=== PATIENT | female | born 1950 | race Caucasian/White ===

== ENCOUNTER 2017-05-08 10:41 | Emergency (ER) | payer MEDICARE, BC ==
[2017-05-08 10:49] VITALS: BP 169/77
[2017-05-08] MEDS ORDERED: Aspirin Low Dose CHEW TAB* 81 MG PO ONE (11:17)
[2017-05-08] MEDS ORDERED: NS 0.9% 1000 ML* 1,000 ML IV ONE (11:18)
[2017-05-08] MEDS ORDERED: Aspirin Low Dose CHEW TAB* 81 MG ONE (11:19)
--- NOTE | 2017-05-08 11:24 | UC ---
Mayito Novak Rebecca, scribed for Karon Monroy MD on 05/08/17 at 1103 . Cardiac HPI - HPI Summary HPI Summary: Pt is a 66 y/o F accompanied by her who presents to [facility] c/o CP radiating to the back. Pain began suddenly this morning and has been constant since onset. PT denies sob, diaphoresis. Pain is in the left anterior region with radiation to the back. Currently, pain is mild, ranked 3/10 and characterized as dull. No analgesia taken. Pt also reports R calf pain that began on April 27 (11 days ago) upon arriving in the [facility] after a plane trip back from [place]. Calf pain was not present while in [place] and has been constant since onset, worse at night. No trauma. Pt states pain worse with movement, palpation calf. Sx slightly alleviated by walking, aggravated by nothing. Denies any extraneous exercise or recent trauma. PMHx HTN, CAD with AL in 1993. PSHx angioplasty in [place], [place]. Does not take any blood thinners. Has been compliant with HTN medication. Pt is not on anticoagulation Patient's medications reviewed this visit. - History of Current Complaint [facility] Stated Complaint: CHEST PAIN,LEG PAIN Time Seen by Provider: 05/08/17 10:47 Hx Obtained From: Patient Onset/Duration: Lasting Days - CP - today R calf pain - 11 days ago, Still Present Timing: Constant Current Severity: Mild Pain Intensity: 3 Chest Pain Location: Left Anterior - with radiation to the back Character: Dull/Aching Aggravating: Nothing Alleviating: Upright - Standing and walking Associated Signs & Symptoms: Positive: Calf Pain/Swelling - R calf pain for 11 days s/p plane ride from [email or web address] - Allergy/Home Medications Allergies/Adverse Reactions: Allergies Allergy/AdvReac Type Severity Reaction Status Date / Time Penicillins [PCN] Allergy Rash Verified 05/08/17 10:49 Home Medications: Home Medications Atorvastatin* [Lipitor 40 MG*] 40 mg PO DAILY 05/08/17 [History Confirmed ] Biotin 1,000 mcg PO DAILY 05/08/17 [History Confirmed 05/08/17] Magnesium 250 mg PO DAILY 05/08/17 [History Confirmed 05/08/17] Metoprolol Succinate XL TAB* [Toprol XL TAB*] 25 mg PO DAILY 05/08/17 [History Confirmed 05/08/17] [place]-3 Fatty Acids [Fish Oil] 1,200 mg PO DAILY 05/08/17 [History Confirmed ] Omeprazole CAP* [Prilosec CAP* 20 MG] 20 mg PO DAILY 05/08/17 [History Confirmed 05/08/17] PARoxetine HCL TAB* [Paxil TAB*] 10 mg PO DAILY 05/08/17 [History Confirmed ] PMH/Surg Hx/FS Hx/Imm Hx Cardiovascular History: Cardiac Disease, Hypertension, Myocardial Infarction - Surgical History Surgical History: Yes Surgery Procedure, Year, and Place: Puloric stenosis, gall bladder removed, compound fx left tibia, bunion surgery, angioplasty - Family History Known Family History: Positive: Hypertension - mother, Diabetes - father - Social History Lives: With Family Alcohol Use: Daily Substance Use Type: None Smoking Status (MU): Former Smoker Review of Systems Constitutional: Negative Skin: Negative Eyes: Negative ENT: Negative Respiratory: Negative Cardiovascular: Chest Pain - Left anterior with radiation to the back Gastrointestinal: Negative Genitourinary: Negative Motor: Negative Neurovascular: Negative Musculoskeletal: Other: - R calf pain for 11 days s/p plane ride from [place] Neurological: Negative Psychological: Negative All Other Systems Reviewed And Are Negative: Yes Physical Exam Triage Information Reviewed: Yes Appearance: Well-Appearing, No Pain Distress, Well-Nourished Vital Signs: Initial Vital Signs Temp 98.2 F 05/08/17 10:43 Pulse 78 05/08/17 10:43 Resp 18 05/08/17 10:43 BP 169/77 05/08/17 10:43 Pulse Ox 98 05/08/17 10:43 Vital Signs Reviewed: Yes Eyes: Negative: Discharge ENT: Positive: Hearing grossly normal Neck exam: Normal Respiratory: Positive: Chest non-tender, Lungs clear, Normal breath sounds, No respiratory distress Cardiovascular: Positive: RRR, No Murmur, Brisk Capillary Refill Musculoskeletal Exam: Normal Musculoskeletal: Positive: Other: - + tenderness with palption of right calf No edema Neurological Exam: Normal Neurological: Positive: Alert, Muscle Tone Normal Psychological Exam: Normal Skin Exam: Normal Diagnostics - EKG Cardiac Rate: NL - 69 bpm Cardiac Rhythm: Other Rhythm: New - RBBB - no old EKG to compare to ST Segment: Normal - No ST T wave changes - Assessment/Plan Course Of Treatment: PT with right calf pain x 11 days without trauma following plane ride. Pt with left sided cp radiating to back which started this morning. Concern for PE, CAD. d/w pt and -recommend EMS transfer to hospital - pt in agreement. with plan. will give ASA. saline lock. IVF. EMS transfer. Called ED for report - Clinical Impression Provider Diagnoses: chest pain, leg cramping - Physician Notifications Discussed Patient Care With: Raquel Benson Time Discussed With Above Provider: 11:25 Instructed by Provider To: Other - Discussed transfer, made aware of pt Discharge - Discharge Plan Condition: Stable Disposition: TRANS HIGHER LVL OF CARE FAC The documentation as recorded by the Mayito mae Rebecca accurately reflects the service I personally performed and the decisions made by Porfirio rivera Laura, MD.
== END 2017-05-08 11:30 | disposition short-term general hospital (02) ==
LOC: UCEAST 10:41
DX: M79.662 Pain in left lower leg (principal); I20.9 Angina pectoris, unspecified
CPT/HCPCS: 93005; 96360; 99213; A9270-GY; G0463

== ENCOUNTER → 2017-05-08 11:48 | Emergency (ER) | payer MEDICARE, BC ==
[~2017-05-08 11:48] MED LIST: Aspirin Low Dose CHEW TAB* 81 MG PO ONE
[2017-05-08 13:06] LABS: Hematocrit 41 % (35-47); Hemoglobin 13.7 g/dl (12.0-16.0); Mean Corpuscular HGB Conc 34 g/dl (31-36); Mean Corpuscular Hemoglobin 33 pg (27-31); Mean Corpuscular Volume 99 fL (80-97); Mean Platelet Volume 8 um3 (7.4-10.4); Red Blood Count 4.15 10^6/ul (4.0-5.4); Red Cell Distribution Width 14 % (10.5-15)
[2017-05-08 13:20] LABS: Albumin 4.1 g/dL (3.2-5.2); BUN/Creatinine Ratio 18.7 (8-20); Calcium 9.3 mg/dL (8.6-10.3); EGFR African American 79.5 (>60); EGFR Non-African American 61.9 (>60); Globulin 2.8 g/dL (2-4); Magnesium 1.9 mg/dL (1.9-2.7); Potassium 3.8 mmol/L (3.5-5.0); Total Bilirubin 1.2 mg/dL (0.2-1.0); Total Protein 6.9 g/dL (6.4-8.9)
[2017-05-08 13:29] LABS: TSH (Thyroid Stimulating Horm) 2.07 mcIU/mL (0.34-5.60)
--- NOTE | 2017-05-08 13:35 | RAD ---
Indication: Chest pain. Single frontal view of the chest performed at 1305 hours was reviewed. No prior study is available for comparison. No mediastinal shift is noted. Heart is of normal size and configuration. Lung jensen appear clear. IMPRESSION: NO ACTIVE CARDIOPULMONARY DISEASE IS NOTED.
--- NOTE | 2017-05-08 14:15 | RAD ---
Indication: History of right leg edema. Duplex Doppler sonography of the deep venous system of the right lower extremity deep venous system was performed. Bilaterally the common femoral veins appear patent and compressible. Right proximal greater saphenous vein, proximal deep femoral vein, femoral vein, popliteal vein, posterior tibial veins and peroneal veins appear patent and compressible. IMPRESSION: NO EVIDENCE OF DEEP VENOUS THROMBOSIS IS IDENTIFIED.
[2017-05-08 14:26] LABS: Urine Bilirubin Negative (Negative); Urine Glucose Negative (Negative); Urine Nitrite Negative (Negative)
[2017-05-08 17:12] VITALS: BP 118/72
--- NOTE | 2017-05-08 18:49 | ED ---
Akil Novak Auryana, scribed for Pedro Gilmore MD on 05/08/17 at 1233 . HPI Chest Pain - HPI Summary HPI Summary: 66 year old female presented to the ED for pain in her left chest radiating to her back since this morning. She also reports SOB earlier this morning ( currently resolved), right calf pain, right foot cramping, and lightheadedness. Symptoms began while lying in bed. Her chest pain was relieved by NTG on arrival. She notes her pain is similar in location but dissimilar in nature to symptoms of a previous DE. She recently returned from a trip to [place] on April 27. PMHx is significant for DE (1993). - History of Current Complaint Chief Complaint: EDChestPainROMI Time Seen by Provider: 05/08/17 12:08 Hx Obtained From: Patient Onset/Duration: Started Hours Ago Timing: Constant Initial Severity: Mild Current Severity: Mild Pain Intensity: 3 Pain Scale Used: 0-10 Numeric Chest Pain Location: Left Anterior Chest Pain Radiates: Yes Chest Pain Radiates To:: Back - Allergy/Home Medications Allergies/Adverse Reactions: Allergies Allergy/AdvReac Type Severity Reaction Status Date / Time Penicillins [PCN] Allergy Rash Verified 05/08/17 10:49 PMH/Surg Hx/FS Hx/Imm Hx Endocrine/Hematology History: Denies: Hx Diabetes, Hx Thyroid Disease Cardiovascular History: Reports: Hx Hypertension Respiratory History: Denies: Hx Asthma, Hx Chronic Obstructive Pulmonary Disease (COPD) - Cancer History Hx Chemotherapy: No Hx Radiation Therapy: No - Surgical History Surgery Procedure, Year, and Place: Puloric stenosis, gall bladder removed, compound fx left tibia, bunion surgery, angioplasty Infectious Disease History: No Infectious Disease History: Reports: Traveled Outside the in Last 30 Days - [place] Denies: Hx Hepatitis - Family History Known Family History: Positive: Hypertension - mother, Diabetes - father - Social History Alcohol Use: Daily Substance Use Type: Reports: None Smoking Status (MU): Former Smoker Review of Systems Constitutional: Negative Eyes: Negative ENT: Negative Positive: Chest Pain Positive: Shortness Of Breath Gastrointestinal: Negative Genitourinary: Negative Positive: Myalgia - right calf pain, right foot cramping Skin: Negative Neurological: Negative Psychological: Normal All Other Systems Reviewed And Are Negative: Yes Physical Exam - Summary Physical Exam Summary: VITAL SIGNS: Reviewed. GENERAL: Patient is a well-developed and nourished FEMALE who is lying comfortable in the stretcher. Patient is not in any acute respiratory distress. HEAD AND FACE: No signs of trauma. No ecchymosis, hematomas or skull depressions. No sinus tenderness. EYES: PERRLA, EOMI x 2, No injected conjunctiva, no nystagmus. EARS: Hearing grossly intact. Ear canals and tympanic membranes are within normal limits. MOUTH: Oropharynx within normal limits. NECK: Supple, trachea is midline, no adenopathy, no JVD, no carotid bruit, no c- spine tenderness, neck with full ROM. CHEST: Symmetric, no tenderness at palpation LUNGS: Clear to auscultation bilaterally. No wheezing or crackles. CVS: Regular rate and rhythm, S1 and S2 present, no murmurs or gallops appreciated. ABDOMEN: Soft, non-tender. No signs of distention. No rebound no guarding, and no masses palpated. Bowel sounds are normal. EXTREMITIES: FROM in all major joints, no edema, no cyanosis or clubbing. Right calf tenderness. NEURO: Alert and oriented x 3. No acute neurological deficits. Speech is normal and follows commands. SKIN: Dry and warm. Vital Signs On Initial Exam: Initial Vitals BP 139/66 05/08/17 12:03 Diagnostics - Vital Signs Vital Signs Temp Pulse Resp BP Pulse Ox 05/08/17 12:10 65 98 05/08/17 12:04 99.7 F 63 20 139/66 98 05/08/17 12:03 139/66 - Laboratory Lab Results: Lab Results 05/08/17 05/08/17 05/08/17 Range/Units 11:27 11:27 11:27 WBC 6.0 (3.5-10.8) 10^3/ul RBC 4.15 (4.0-5.4) 10^6/ul Hgb 13.7 (12.0-16.0) g/dl Hct 41 (35-47) % MCV 99 H (80-97) fL MCH 33 H (27-31) pg MCHC 34 (31-36) g/dl RDW 14 (10.5-15) % Plt Count 277 (150-450) 10^3/ul MPV 8 (7.4-10.4) um3 Neut % (Auto) 56.6 (38-83) % Lymph % (Auto) 28.5 (25-47) % [place] % (Auto) 9.1 H (1-9) % Eos % (Auto) 5.0 (0-6) % Baso % (Auto) 0.8 (0-2) % Absolute Neuts (auto) 3.4 (1.5-7.7) 10^3/ul Absolute Lymphs (auto) 1.7 (1.0-4.8) 10^3/ul Absolute Monos (auto) 0.5 (0-0.8) 10^3/ul Absolute Eos (auto) 0.3 (0-0.6) 10^3/ul Absolute Basos (auto) 0 (0-0.2) 10^3/ul Absolute Nucleated RBC 0 10^3/ul Nucleated RBC % 0 INR (Anticoag Therapy) 0.81 L (0.89-1.11) APTT 29.1 (26.0-36.3) seconds D-Dimer, Quantitative < 200 (Less Than 230) ng/mL Sodium 137 (133-145) mmol/L Potassium 3.8 (3.5-5.0) mmol/L Chloride 102 (101-111) mmol/L Carbon Dioxide 27 (22-32) mmol/L Anion Gap 8 (2-11) mmol/L BUN 17 (6-24) mg/dL Creatinine 0.91 (0.51-0.95) mg/dL Est GFR ( Amer) 79.5 (>60) Est GFR (Non-Af Amer) 61.9 (>60) BUN/Creatinine Ratio 18.7 (8-20) Glucose 99 (70-100) mg/dL Calcium 9.3 (8.6-10.3) mg/dL Magnesium 1.9 (1.9-2.7) mg/dL Total Bilirubin 1.20 H (0.2-1.0) mg/dL AST 18 (13-39) U/L ALT 19 (7-52) U/L Alkaline Phosphatase 83 (34-104) U/L Total Creatine Kinase 78 (10-223) U/L CK-MB (CK-2) 1.9 (0.6-6.3) ng/mL Troponin I 0.00 (<0.04) ng/mL B-Natriuretic Peptide ( - 100) pg/mL Total Protein 6.9 (6.4-8.9) g/dL Albumin 4.1 (3.2-5.2) g/dL Globulin 2.8 (2-4) g/dL Albumin/Globulin Ratio 1.5 (1-3) TSH 2.07 (0.34-5.60) mcIU/mL Urine Color Urine Appearance Urine pH (5-9) Ur Specific [place] (1.010-1.030) Urine Protein (Negative) Urine Ketones (Negative) Urine Blood (Negative) Urine Nitrate (Negative) Urine Bilirubin (Negative) Urine Urobilinogen (Negative) Ur Leukocyte Esterase (Negative) Urine Glucose (Negative) 05/08/17 05/08/17 05/08/17 Range/Units 11:27 14:17 15:10 WBC (3.5-10.8) 10^3/ul RBC (4.0-5.4) 10^6/ul Hgb (12.0-16.0) g/dl Hct (35-47) % MCV (80-97) fL MCH (27-31) pg MCHC (31-36) g/dl RDW (10.5-15) % Plt Count (150-450) 10^3/ul MPV (7.4-10.4) um3 Neut % (Auto) (38-83) % Lymph % (Auto) (25-47) % [place] % (Auto) (1-9) % Eos % (Auto) (0-6) % Baso % (Auto) (0-2) % Absolute Neuts (auto) (1.5-7.7) 10^3/ul Absolute Lymphs (auto) (1.0-4.8) 10^3/ul Absolute Monos (auto) (0-0.8) 10^3/ul Absolute Eos (auto) (0-0.6) 10^3/ul Absolute Basos (auto) (0-0.2) 10^3/ul Absolute Nucleated RBC 10^3/ul Nucleated RBC % INR (Anticoag Therapy) (0.89-1.11) APTT (26.0-36.3) seconds D-Dimer, Quantitative (Less Than 230) ng/mL Sodium (133-145) mmol/L Potassium (3.5-5.0) mmol/L Chloride (101-111) mmol/L Carbon Dioxide (22-32) mmol/L Anion Gap (2-11) mmol/L BUN (6-24) mg/dL Creatinine (0.51-0.95) mg/dL Est GFR ( Amer) (>60) Est GFR (Non-Af Amer) (>60) BUN/Creatinine Ratio (8-20) Glucose (70-100) mg/dL Calcium (8.6-10.3) mg/dL Magnesium (1.9-2.7) mg/dL Total Bilirubin (0.2-1.0) mg/dL AST (13-39) U/L ALT (7-52) U/L Alkaline Phosphatase (34-104) U/L Total Creatine Kinase (10-223) U/L CK-MB (CK-2) (0.6-6.3) ng/mL Troponin I 0.00 (<0.04) ng/mL B-Natriuretic Peptide 57 ( - 100) pg/mL Total Protein (6.4-8.9) g/dL Albumin (3.2-5.2) g/dL Globulin (2-4) g/dL Albumin/Globulin Ratio (1-3) TSH (0.34-5.60) mcIU/mL Urine Color Yellow Urine Appearance Clear Urine pH 7.0 (5-9) Ur Specific [place] 1.016 (1.010-1.030) Urine Protein Negative (Negative) Urine Ketones Negative (Negative) Urine Blood Negative (Negative) Urine Nitrate Negative (Negative) Urine Bilirubin Negative (Negative) Urine Urobilinogen Negative (Negative) Ur Leukocyte Esterase Negative (Negative) Urine Glucose Negative (Negative) Result Diagrams: 05/08/17 11:27 05/08/17 11:27 Lab Statement: Any lab studies that have been ordered have been reviewed, and results considered in the medical decision making process. - Radiology CXR Xray Interpretation: No Acute Changes Radiology Interpretation Completed By: Radiologist - EKG 13:08 EKG Interpretation: Sinus rhythm at 61 bpm. RBBB. - Additional Comments Diagnostic Additional Comments: VL Lower Ext Veins Right IMPRESSION: NO EVIDENCE OF DEEP VENOUS THROMBOSIS IS IDENTIFIED. Chest Pain Course/Dx - Course Assessment/Plan: 66 year old female presented to the ED for pain in her left chest radiating to her back since this morning. She also reports SOB earlier this morning (currently resolved), right calf pain, right foot cramping, and lightheadedness. Symptoms began while lying in bed. Her chest pain was relieved by NTG on arrival. She notes her pain is similar in location but dissimilar in nature to symptoms of a previous DE. She recently returned from a trip to [place] on April 27. PMHx is significant for DE (1993). In the ED course an IV access was obtained. Patient was placed in a cardiac cath rn. Patient was started with IV fluids. Blood work w/o any significant abnormality. UA negative for UTI. Troponin #1: 0.00 Troponin # 2: 0.00. EKG shows a NSR at w/o ST elevations. CXR impression: No acute pathology. RLE U/S negative for DVT. D dimer is <200. Wells criteria is shows low probability for PE. Patient is not hypoxic and not tachycardic and she is not taking any BB. Therefore I have low probability for a pe>. Patient is asymptomatic therefore she will be discharged home with f/u of PMD. I discussed all the findings and test results with the patient. Patient was instructed to return to the emergency room immediately if any of the symptoms return or worsens. Plan of care was discussed with the patient and understands and agrees. All questions were answered at patient satisfaction. There were no further complaints or concerns. Lung exam before discharge: CTA B/L. Good air exchange. No wheezing or crackles heard. CVS: S1 and S2 present. No murmurs appreciated. Patient is alert and oriented x 3. Patient is hemodynamically stable. Patient will be discharged home with follow up PCP in the next 2-3 days - Chest Pain Differential Diagnosis/HQI/PQRI: Acute DE, ACS, Angina, CHF, Chest Wall, GI Disease, Lower Respiratory Infection, Pulmonary Edema, Pulmonary Embolism - Diagnoses Provider Diagnoses: Atypical chest pain Discharge - Discharge Plan Condition: Stable Disposition: HOME Patient Education Materials: Chest Pain (ED) Referrals: Lana Alaniz MD [Primary Care Provider] - 2 Days The documentation as recorded by the Akil mae Auryana accurately reflects the service I personally performed and the decisions made by , Pedro Gilmore MD.
== END | disposition home or self-care (01) ==
LOC: ED 11:48
DX: R07.89 Other chest pain (principal); Z87.891 Personal history of nicotine dependence; R06.02 Shortness of breath
CPT/HCPCS: 36415; 71010; 80053; 81003; 82550; 82553; 83735; 83880; 84443; 84484; 85025; 85379; 85610; 85730; 93005; 99283

== ENCOUNTER 2017-05-12 13:15 | Emergency (ER) | payer MEDICARE, BC ==
[2017-05-12 13:22] VITALS: BP 156/73
[2017-05-12] MEDS ORDERED: Acetaminophen TAB* 325 MG PO ONE (14:10)
--- NOTE | 2017-05-12 14:17 | UC ---
Lower Extremity/Ankle HPI - HPI Summary HPI Summary: right lower leg pain and swelling out right calf after a fall - History of Current Complaint Hx Obtained From: Patient ?: No Onset/Duration: Sudden Onset, Still Present Severity Initially: Moderate Severity Currently: Moderate Pain Intensity: 7 Pain Scale Used: 0-10 Numeric Aggravating Factor(s): Standing, Ambulation Alleviating Factor(s): Other - arnica Able to Bear Weight: Yes <Raegan Alvarado - Last Filed: 05/12/17 15:18> <Karon Monroy - Last Filed: 05/12/17 15:46> - History of Current Complaint Chief Complaint: UCLowerExtremity Stated Complaint: LEG PAIN-WORSE & HAS NOW FALLEN ON IT Time Seen by Provider: 05/12/17 13:46 - Allergies/Home Medications Allergies/Adverse Reactions: Allergies Allergy/AdvReac Type Severity Reaction Status Date / Time Penicillins [PCN] Allergy Rash Verified 05/12/17 13:21 PMH/Surg Hx/FS Hx/Imm Hx Previously Healthy: No Endocrine History: Dyslipidemia Cardiovascular History: Hypertension GI/ History: Gastroesophageal Reflux - Surgical History Surgical History: Yes Surgery Procedure, Year, and Place: Puloric stenosis, gall bladder removed, compound fx left tibia, bunion surgery, angioplasty - Family History Known Family History: Positive: Hypertension - mother, Diabetes - father - Social History Occupation: Retired Lives: With Family Alcohol Use: Daily Substance Use Type: None Smoking Status (MU): Former Smoker <Raegan Alvarado - Last Filed: 05/12/17 15:18> Review of Systems Constitutional: Negative Skin: Bruising - right outercalf Eyes: Negative ENT: Negative Respiratory: Negative Cardiovascular: Negative Gastrointestinal: Negative Genitourinary: Negative Motor: Negative Neurovascular: Negative Musculoskeletal: Myalgia - right later calf Neurological: Negative Psychological: Negative All Other Systems Reviewed And Are Negative: Yes <Raegan Alvarado - Last Filed: 05/12/17 15:18> Physical Exam Triage Information Reviewed: Yes Appearance: Well-Appearing, No Pain Distress, Well-Nourished Vital Signs: Initial Vital Signs Temp 97.6 F 05/12/17 13:17 Pulse 80 05/12/17 13:17 Resp 18 05/12/17 13:17 BP 156/73 05/12/17 13:17 Pulse Ox 98 07/18/17 13:17 Vital Signs Reviewed: Yes Eye Exam: Normal Eyes: Positive: Conjunctiva Clear ENT Exam: Normal ENT: Positive: Normal ENT inspection, Hearing grossly normal. Negative: Nasal congestion, Nasal drainage, Trismus, Muffled/hoarse voice Dental Exam: Normal Neck exam: Normal Neck: Positive: Supple, Nontender Respiratory Exam: Normal Respiratory: Positive: Chest non-tender, Lungs clear, Normal breath sounds, No respiratory distress, No accessory muscle use, Respiratory distress Cardiovascular Exam: Normal Cardiovascular: Positive: RRR, No Murmur, Pulses Normal, Brisk Capillary Refill Musculoskeletal Exam: Normal Musculoskeletal: Positive: Strength Intact, ROM Intact, Edema @ - right lower leg outer aspect Neurological Exam: Normal Neurological: Positive: Alert, Muscle Tone Normal Psychological Exam: Normal Skin Exam: Other Skin: Positive: Other - contusion <Raegan Alvarado - Last Filed: 05/12/17 15:18> Vital Signs: Initial Vital Signs Temp 97.6 F 05/12/17 13:17 Pulse 80 05/12/17 13:17 Resp 18 05/12/17 13:17 BP 156/73 05/12/17 13:17 Pulse Ox 98 05/12/17 13:17 <Karon Monroy - Last Filed: 05/12/17 15:46> Diagnostics - Radiology No standard instances Xray Interpretation: No Acute Changes <Raegan Alvarado - Last Filed: 05/12/17 15:18> Lower Extremity Course/Dx - Course Course Of Treatment: mild soap and water wash, warm compress, bactrim, elevate follow with pcp - Differential Dx/Diagnosis Differential Diagnosis/HQI/PQRI: Cellulitis, Contusion, DVT Provider Diagnoses: cellulitis right lateral lower leg <Raegan Alvarado - Last Filed: 05/12/17 15:18> Discharge <Raegan Alvarado - Last Filed: 05/12/17 15:18> <Karon Monroy - Last Filed: 05/12/17 15:46> - Discharge Plan Condition: Stable Disposition: HOME Prescriptions: Sulfamethox/Trimethoprim DS* [Bactrim DS 800/160 TAB*] 1 tab PO BID #20 tab Patient Education Materials: Cellulitis (ED), DASH Eating Plan (ED), Hypertension (ED), Warm Compress or Soak (ED) Referrals: Lana Alaniz MD [Primary Care Provider] - 4 Days Attestation Statement User Type: Provider - I was available for consult. This patient was seen by the [facility]. The patient was not presented to, seen by, or examined by me. -Baron <Karon Monroy - Last Filed: 05/12/17 15:46>
--- NOTE | 2017-05-12 14:49 | RAD ---
HISTORY: Pain, swelling, injury COMPARISONS: May 08, 2017 TECHNIQUE: Multiple transverse and longitudinal ultrasound images were obtained of the right lower extremity from the level of the common femoral vein inferiorly through to the infrapopliteal veins using grayscale, color Doppler, and spectral Doppler imaging with and without compression and with augmentation. Comparison images were obtained of the contralateral common femoral vein. FINDINGS: VEINS: The venous system of the right lower extremity is compressible throughout its course, with normal flow on color Doppler imaging and normal response to augmentation on spectral Doppler imaging. SOFT TISSUES: There is mild edema at the site of injury of the lateral calf. OTHER FINDINGS: None. IMPRESSION: NO RIGHT LOWER EXTREMITY DEEP VEIN THROMBOSIS
== END 2017-05-12 15:07 | disposition home or self-care (01) ==
LOC: UCEAST 13:15
DX: L03.115 Cellulitis of right lower limb (principal); W19.XXXA Unspecified fall, initial encounter; Y93.9 Activity, unspecified; Y92.9 Unspecified place or not applicable; Y99.9 Unspecified external cause status; Z87.891 Personal history of nicotine dependence
CPT/HCPCS: 99212; A9270-GY; G0463